=== PATIENT | female | born 1975 | race Caucasian/White ===

== ENCOUNTER 2017-04-11 21:32 | Emergency (ER) | payer SELFPAY ==
[~2017-04-11] VITALS: Ht 162.6 cm; Wt 105.0 kg
[~2017-04-11 21:32] MED LIST: METF500T4 PO; METH250T PO; PRENAT PO
[2017-04-11 21:41] VITALS: Ht 162.6 cm; Wt 105.0 kg
--- NOTE | 2017-04-11 22:29 | ERA ---
ER Documentation Chief Complaint Date/Time DATE: 04/11/17 TIME: 22:28 Chief Complaint intermittent chest pain x 3 days HPI The patient is a 41-year-old female, presenting to the ER because of intermittent epigastric abdominal pain radiating to the sternal area for 3 days. She feels as if it is her heartburn. She has similar symptoms previously , denies aggravating or relieving factor, denies chest pain with exertion/ vomiting/diaphoresis. She denies nausea, vomiting, dysuria, diarrhea. She does not smoke nor drink Past medical history: Diabetes mellitus, hypertension. She is only on diet therapy no medication Past medical history: Cholecystectomy ROS All systems reviewed and are negative except as per history of present illness. Medications Home Meds Active Scripts Ibuprofen* (Motrin*) 600 Mg Tab, 600 MG PO Q6, #20 TAB Prov:ROBER OVALLES MD 04/12/17 Pantoprazole* (Protonix*) 40 Mg Tablet.dr, 40 MG PO DAILY, #20 TAB Prov:ROBER OVALLES MD 04/12/17 Reported Medications Metformin* (Glucophage*) 500 Mg Tab, 250 MG PO WITH BREAKFAST, #30 TAB 10/23/15 Multivit/Min/Fol Ac/Iron/Pren* ( S*) 1 Tab Tab, 1 TAB PO DAILY, TAB 10/23/15 Methyldopa* (Methyldopa*) 250 Mg Tablet, 250 MG PO TID, TAB PER PT HASN'T STARTED RX IT WAS PRESCRIBED TODAY 07/13/15 Allergies Allergies: Coded Allergies: No Known Allergy (Unverified , 06/15/15) PMhx/Soc History of Surgery: No Anesthesia Reaction: No Hx Neurological Disorder: No Hx Respiratory Disorders: No Hx Cardiac Disorders: No Hx Psychiatric Problems: No Hx Miscellaneous Medical Probl: No Hx Alcohol Use: No Hx Substance Use: No Hx Tobacco Use: No Physical Exam Vitals Vital Signs Date Time Temp Pulse Resp B/P Pulse Ox O2 Delivery O2 Flow Rate FiO2 04/11/17 22:53 98.1 102 20 131/74 97 Room Air 04/11/17 21:41 98.1 101 20 171/100 97 Physical Exam Const: No acute distress. Head: Atraumatic. Eyes: Normal Conjunctiva. ENT: Normal External Ears, Nose and Mouth. Neck: Full range of motion. No meningismus. Resp: Clear to auscultation bilaterally. Cardio: Regular rate and rhythm. Abd: Soft, non distended, normal bowel sounds, Mild epigastric discomfort, no right lower quadrant, right upper quadrant, CVA, rigidity, rebound tenderness Skin: No petechiae or rashes. Back: No midline or flank tenderness. Ext: No cyanosis, or edema. Neur: Awake and alert. No focal deficit Psych: Normal Mood and Affect. Result Diagram: 04/11/17223904/11/172245 Results 24 hrs Laboratory Tests Test 04/11/17 22:40 04/11/17 22:46 04/12/17 00:13 White Blood Count 12.110^3/ul Red Blood Count 4.2810^6/ul Hemoglobin 12.1g/dl Hematocrit 36.9% Mean Corpuscular Volume 86.2fl Mean Corpuscular Hemoglobin 28.3pg Mean Corpuscular Hemoglobin Concent 32.8g/dl Red Cell Distribution Width 14.1% Platelet Count 70803^3/UL Mean Platelet Volume 9.8fl Neutrophils % 65.2% Lymphocytes % 24.8% Monocytes % 6.3% Eosinophils % 2.8% Basophils % 0.5% Nucleated Red Blood Cells % 0.0/100WBC Neutrophils # 7.910^3/ul Lymphocytes # 3.010^3/ul Monocytes # 0.810^3/ul Eosinophils # 0.310^3/ul Basophils # 0.110^3/ul Nucleated Red Blood Cells # 0.010^3/ul D-Dimer 242.26ng/ml D-Dimer Comment Sodium Level 142mmol/L Potassium Level 3.2mmol/L Chloride Level 103mmol/L Carbon Dioxide Level 28mmol/L Anion Gap 14 Blood Urea Nitrogen 15mg/dl Creatinine 0.93mg/dl Glucose Level 115mg/dl Calcium Level 9.1mg/dl Total Bilirubin 0.1mg/dl Direct Bilirubin 0.00mg/dl Indirect Bilirubin 0.1mg/dl Aspartate Amino Transf (AST/SGOT) 31IU/L Alanine Aminotransferase (ALT/SGPT) 48IU/L Alkaline Phosphatase 92IU/L Troponin I < 0.012ng/ml Total Protein 8.6g/dl Albumin 4.3g/dl Globulin 4.30g/dl Albumin/Globulin Ratio 1.00 Lipase 44U/L Bedside Urine pH (LAB) 6.0 Bedside Urine Protein (LAB) Negative Bedside Urine Glucose (UA) Negative Bedside Urine Ketones (LAB) Negative Bedside Urine Blood 1+ Bedside Urine Nitrite (LAB) Negative Bedside Urine Leukocyte Esterase (L Negative Current Medications Medications (Trade) Dose Ordered Sig/Sabrina Route PRN Reason Start Time Stop Time Status Last Admin Dose Admin Pantoprazole (Protonix Tab) 40 mg ONCE ONCE PO 04/11/17 23:00 04/11/17 23:01 DC 04/11/17 22:53 Procedures/MDM EKG: Read by emergency physician Rate/Rhythm: Sinus tachycardia 104 beats/min QRS, ST, T-waves: No ST elevation, no T inversion Impression: Abnormal EKG [place] [id number] Radiology Main Line: [phone] DIAGNOSTIC IMAGING REPORT Patient: CLIFF DELGADO : 1975 Age: 41 Sex: F MR #: [id number] DOS: 04/11/17 2242 Ordering MD: ROBER OVALLES MD Location: E/R Room/Bed: PROCEDURE: XR Chest. CLINICAL INDICATION: Pain. TECHNIQUE: Single frontal chest x-ray. COMPARISON: None. FINDINGS: The cardiomediastinal silhouette is unremarkable. There is no congestive heart failure.. No focal infiltrate is seen. There is no pleural effusion. There is no pneumothorax. The osseous structures are unremarkable. IMPRESSION: 1. No active disease. RPTAT: [facility] .Rober Tinoco MD, Date Time Electronically viewed and signed by .Rober Tinoco MD, MD on 04/12/2017 00:43 .K/ CC: ROBER OVALLES MD MEDICAL MAKING DECISION: The patient is a 41-year-old female, presenting with epigastric abdominal pain, acute hypokalemia. She was treated with Protonix 40 mg p.o. for epigastric abdominal pain and potassium chloride 40 mEq p.o. for acute hypokalemia and Zofran ODT for nausea with good response The differential diagnoses considered include but are not limited to cystitis, pancreatitis, hepatitis, gastritis, peptic ulcer disease, gastric ulcer, appendicitis, diverticulitis, cholangitis, choledocholithiasis, partial small bowel obstruction. Departure Diagnosis: Primary Impression: Epigastric abdominal pain Additional Impression: Hypokalemia Condition: Good Comments I discussed the findings with the patient. I advised the patient to follow-up with the primary physician in about 1-2 days, sooner if needed and return if any concern. ROBER OVALLES MD Apr 11, 2017 22:29
[2017-04-11] MEDS ORDERED: PANTOPRAZOLE (EC) 40 MG TAB PO ONE (23:00)
[2017-04-11 23:06] LABS: WHITE BLOOD COUNT 12.1 10^3/ul (4.8-10.8)
[2017-04-11 23:07] LABS: BASOPHIL # 0.1 10^3/ul (0.0-0.1); BASOPHILS % 0.5 % (0.0-2.0); EOSINOPHILS # 0.3 10^3/ul (0.0-0.5); EOSINOPHILS % 2.8 % (0.0-7.0); HEMATOCRIT 36.9 % (37.0-47.0); HEMOGLOBIN 12.1 g/dl (12.0-16.0); LYMPHOCYTES % 24.8 % (15.0-51.0); MEAN CORPUSCULAR HEMOGLOBIN 28.3 pg (29.0-33.0); MEAN CORPUSCULAR HGB CONC 32.8 g/dl (32.0-37.0); MEAN CORPUSCULAR VOLUME 86.2 fl (82.0-101.0); MEAN PLATELET VOLUME 9.8 fl (7.4-10.4); MONOCYTE # 0.8 10^3/ul (0.3-0.9); MONOCYTES % 6.3 % (0.0-11.0); NEUTROPHIL # 7.9 10^3/ul (1.6-7.5); NEUTROPHILS % 65.2 % (39.0-77.0); PLATELET COUNT 341 10^3/UL (140-415); RED BLOOD COUNT 4.28 10^6/ul (4.20-5.40); RED CELL DISTRIBUTION WIDTH 14.1 % (11.5-14.5)
[2017-04-11 23:27] LABS: ALANINE AMINOTRANSFERASE 48 IU/L (13-69); ALBUMIN 4.3 g/dl (3.3-4.9); ALKALINE PHOSPHATASE 92 IU/L (42-121); ANION GAP 14 (8-16); ASPARTATE AMINO TRANSFERASE 31 IU/L (15-46); BILIRUBIN,INDIRECT 0.1 mg/dl (0-1.1); BILIRUBIN,TOTAL 0.1 mg/dl (0.2-1.3); BLOOD UREA NITROGEN 15 mg/dl (7-20); CALCIUM 9.1 mg/dl (8.4-10.2); CARBON DIOXIDE 28 mmol/L (21-31); CHLORIDE 103 mmol/L (97-110); CREATININE 0.93 mg/dl (0.44-1.00); GLUCOSE 115 mg/dl (70-220); POTASSIUM 3.2 mmol/L (3.5-5.1); SODIUM 142 mmol/L (135-144); TOTAL PROTEIN 8.6 g/dl (6.1-8.1)
[2017-04-11 23:28] LABS: D-DIMER 242.26 ng/ml (<460)
[2017-04-11 23:40] LABS: TROPONIN-I < 0.012 ng/ml (0.00-0.12)
[2017-04-12 00:05] LABS: URINE BLOOD (Dip) POC 1+ (NEGATIVE)
--- NOTE | 2017-04-12 00:44 | RADRPT ---
PROCEDURE: XR Chest. CLINICAL INDICATION: Pain. TECHNIQUE: Single frontal chest x-ray. COMPARISON: None. FINDINGS: The cardiomediastinal silhouette is unremarkable. There is no congestive heart failure.. No focal i nfiltrate is seen. There is no pleural effusion. There is no pneumothorax. The osseous structures are unremarkable. IMPRESSION: 1. No active disease. RPTAT: [facility] .Rober Tinoco MD, Date Time Electronically viewed and signed by .Rober Tinoco MD, MD on 04/12/2017 00:43 .K/
[2017-04-12] MEDS ORDERED: PANT40TA3 PO (01:19)
[2017-04-12] MEDS ORDERED: IBUP-1542 PO (01:20)
[2017-04-12 01:50] VITALS: BP 128/71; PULSE 100; RESP 18; TEMP 98
== END 2017-04-12 01:52 | disposition home or self-care (01) ==
LOC: E/R 21:32
DX: R10.13 Epigastric pain (principal); E87.6 Hypokalemia; E11.9 Type 2 diabetes mellitus without complications; I10 Essential (primary) hypertension
CPT/HCPCS: 36415; 71010; 80053; 81003; 83690; 84484; 85025; 85378